=== PATIENT | male | born 1990 | race Caucasian/White ===

== ENCOUNTER → 2016-10-15 | Outpatient (CLI) | payer BC, MEDICAID ==
[~2016-10-15] MED LIST: RISPERDAL 0.5M0.5 MG PO; RISPERDAL 1M1 MG/TAB PO
== END ==
LOC: BHSO 09:01
DX: F06.32 Mood disorder due to known physiological condition with major depressive-like episode (principal)

== ENCOUNTER → 2017-04-09 | Outpatient (CLI) | payer BC, MEDICAID | LOC: BHSO 08:31 | DX: F20.9 Schizophrenia, unspecified (principal) ==

== ENCOUNTER → 2017-10-01 | Outpatient (CLI) | payer BC, MEDICAID | LOC: BHSO 10:08 | DX: F20.9 Schizophrenia, unspecified (principal) | CPT/HCPCS: G0463 ==

== ENCOUNTER → 2018-03-11 | Outpatient (CLI) | payer BC, MEDICAID | LOC: BHSO 09:14 | DX: F06.32 Mood disorder due to known physiological condition with major depressive-like episode (principal) | CPT/HCPCS: G0463 ==

== ENCOUNTER → 2018-09-18 | Outpatient (CLI) | payer BC, MEDICAID | LOC: BHSO 08:45 | DX: F41.1 Generalized anxiety disorder (principal) | CPT/HCPCS: G0463 ==

== ENCOUNTER → 2019-03-18 | Outpatient (CLI) | payer BC, MEDICAID | LOC: BHSO 08:52 | DX: F41.1 Generalized anxiety disorder (principal) | CPT/HCPCS: G0463 ==

== ENCOUNTER → 2020-01-27 | Outpatient (CLI) | payer BC, MEDICAID | LOC: BHSTELE 13:10 | DX: F41.1 Generalized anxiety disorder (principal) | CPT/HCPCS: G0463 ==